=== PATIENT | female | born 1980 | race American Indian/Alaskan Native ===

== ENCOUNTER 2016-07-13 14:16 | Emergency (ER) | payer MEDICAID, OTHER ==
[2016-07-13 14:38] VITALS: BP 125/103
--- NOTE | 2016-07-13 16:05 | Emergency Department Report ---
ED ENT HPI - General Chief complaint: Upper Respiratory Infection Stated complaint: SINUS Time Seen by Provider: 07/13/16 15:51 Source: patient, RN notes reviewed, old records reviewed Mode of arrival: Ambulatory Limitations: No Limitations - History of Present Illness Initial comments: PT c/o sinus congestion since December of last year. PT states she was seen in this ED and the RX medication she was given did "nothing" PT holding bottle of Flonase and states it does not help. PT asking for refill or another nasal spray. PT has not followed up with PCP. PT has never had allergy testing. MD complaint: other (nasal congestion) Onset/Timin -: Gradual, month(s) Location: other (ears, nose, sinus ) Quality: other (itchy ) Associated Symptoms: discharge from ear (feels like water is in ears ), rhinorrhea. denies: fever, sore throat - Related Data Previous Rx's Medication Instructions Recorded Last Taken Type Azithromycin [Zithromax] 250 mg PO DAILY #6 tablet 07/13/16 Unknown Rx Cetirizine HCl/Pseudoephedrine 1 each PO BID PRN #14 tab.er.12h 07/13/16 Unknown Rx [Cetirizine-Pse ER 5-120 mg Tab] methylPREDNISolone [Medrol] 4 mg PO DAILY #1 tab.ds.pk 07/13/16 Unknown Rx Allergies Allergy/AdvReac Type Severity Reaction Status Date / Time No Known Allergies Allergy Unverified 08/13/15 07:37 ED Dental HPI - General Chief complaint: Upper Respiratory Infection Stated complaint: SINUS Time Seen by Provider: 07/13/16 15:51 Source: patient Mode of arrival: Ambulatory Limitations: No Limitations - Related Data Previous Rx's Medication Instructions Recorded Last Taken Type Azithromycin [Zithromax] 250 mg PO DAILY #6 tablet 07/13/16 Unknown Rx Cetirizine HCl/Pseudoephedrine 1 each PO BID PRN #14 tab.er.12h 07/13/16 Unknown Rx [Cetirizine-Pse ER 5-120 mg Tab] methylPREDNISolone [Medrol] 4 mg PO DAILY #1 tab.ds.pk 07/13/16 Unknown Rx Allergies Allergy/AdvReac Type Severity Reaction Status Date / Time No Known Allergies Allergy Unverified 08/13/15 07:37 ED Review of Systems ROS: Stated complaint: SINUS Other details as noted in HPI Comment: All other systems reviewed and negative Constitutional: denies: fever ENT: as per HPI, congestion, other (nasal drainage, sneezing, ears itch ). denies: ear pain, throat pain ED Past Medical Hx - Past Medical History Previous Medical History?: No - Surgical History Additional Surgical History: pelvic repair - Social History Smoking Status: Current Every Day Smoker Substance Use Type: None - Medications Home Medications: Home Medications Medication Instructions Recorded Confirmed Last Taken Type Azithromycin [Zithromax] 250 mg PO DAILY #6 tablet 07/13/16 Unknown Rx Cetirizine HCl/Pseudoephedrine 1 each PO BID PRN #14 tab.er.12h 07/13/16 Unknown Rx [Cetirizine-Pse ER 5-120 mg Tab] methylPREDNISolone [Medrol] 4 mg PO DAILY #1 tab.ds.pk 07/13/16 Unknown Rx ED Physical Exam - General Limitations: No Limitations General appearance: alert, in no apparent distress - Head Head exam: Present: atraumatic, normocephalic, normal inspection - Eye Eye exam: Present: normal appearance. Absent: scleral icterus, conjunctival injection - ENT ENT exam: Present: normal orophraynx, mucous membranes moist, TM's normal bilaterally, other (dry skin to R tragus, nose - nasal drainage noted, erna turbinates boggy and erythematous ) - Neck Neck exam: Present: normal inspection. Absent: lymphadenopathy - Respiratory Respiratory exam: Present: normal lung sounds bilaterally. Absent: respiratory distress - Cardiovascular Cardiovascular Exam: Present: regular rate, normal rhythm, normal heart sounds - Extremities Exam Extremities exam: Present: normal inspection, full ROM - Back Exam Back exam: Present: normal inspection, full ROM - Neurological Exam Neurological exam: Present: alert, oriented X3 - Psychiatric Psychiatric exam: Present: normal affect, normal mood - Skin Skin exam: Present: warm, dry, intact ED Course Vital Signs 07/13/16 14:31 Temperature 98.4 F Pulse Rate 85 Respiratory 20 Rate Blood Pressure 125/103 O2 Sat by Pulse 100 Oximetry - Reevaluation(s) Reevaluation #1: 07/13/16 16:13 Due to length of symptoms, I feel like this pt's symptoms are more related to allergic rhinitis, pt is insistent that she does not have allergies and she has never had allergies and she has a sinus infection. PT aware if symptoms do not improve, she may need allergy testing. - Pulse Oximetry Interpretation Digit-Finger Initial Pulse Oximetry Readin Actions Taken: none ED Medical Decision Making - Differential Diagnosis sinusitis, allergic rhinitis Critical care attestation.: If time is entered above; I have spent that time in minutes in the direct care of this critically ill patient, excluding procedure time. ED Disposition Clinical Impression: Sinus congestion Allergic rhinitis Qualifiers: Allergic rhinitis seasonality: unspecified seasonality Allergic rhinitis trigger: unspecified Qualified Code(s): J30.9 - Allergic rhinitis, unspecified Disposition: DISCHARGED TO HOME OR SELFCARE Is pt being admited?: No Does the pt Need Aspirin: No Condition: Stable Instructions: Allergic Rhinitis (ED), Sinusitis (ED) Additional Instructions: OTC normal saline nasal sprays at least 4 times daily have your BP rechecked at follow up Referrals: PRIMARY CARE, [Primary Care Provider] - 3-5 Days REJI AUSTIN MD [Staff Physician] - 3-5 Days Time of Disposition: 16:19
== END 2016-07-13 16:23 | disposition home or self-care (01) ==
LOC: ED 14:16
DX: J34.89 Other specified disorders of nose and nasal sinuses (principal); J30.9 Allergic rhinitis, unspecified; H92.10 Otorrhea, unspecified ear; F17.200 Nicotine dependence, unspecified, uncomplicated
CPT/HCPCS: 99282

== ENCOUNTER 2016-12-17 09:10 | Emergency (ER) | payer MEDICAID ==
[2016-12-17 09:28] VITALS: BP 107/63
--- NOTE | 2016-12-17 12:45 | Emergency Department Report ---
- General Chief Complaint: Upper Respiratory Infection Stated Complaint: POSS BROKEN L FINGER/SINUS INFECTION Time Seen by Provider: 12/17/16 12:28 Source: patient Mode of arrival: Ambulatory Limitations: No Limitations - History of Present Illness Initial Comments: 36-year-old female presents with complaint of left distal index finger inflammation/pain near her nailbed and complaint of one week of sinus congestion and sneezing and mild anterior sinus headache. Patient denies fevers or chills shortness of breath and coughing does state she has been sneezing. Patient has visible swelling near nailbed left distal fingertip. MD Complaint: nasal congestion Onset/Timin -: week(s) Severity: mild Severity scale (0 -10): 5 Quality: aching Consistency: constant Improves With: nothing Worsens With: nothing Associated Symptoms: denies other symptoms - Related Data Previous Rx's Medication Instructions Recorded Last Taken Type Azithromycin [Zithromax] 250 mg PO DAILY #6 tablet 07/13/16 Unknown Rx Cetirizine HCl/Pseudoephedrine 1 each PO BID PRN #14 tab.er.12h 07/13/16 Unknown Rx [Cetirizine-Pse ER 5-120 mg Tab] methylPREDNISolone [Medrol] 4 mg PO DAILY #1 tab.ds.pk 07/13/16 Unknown Rx Acetaminophen/Codeine [Tylenol 1 tab PO Q6H PRN #5 tab 12/17/16 Unknown Rx /Codeine # 3 tab] Amoxicillin/K Clav Tab [Augmentin 1 tab PO Q12HR #20 tab 12/17/16 Unknown Rx 875 mg] Azelastine HCl 137 mcg NS QDAY PRN #1 bottle 12/17/16 Unknown Rx Fluticasone [Flonase] 1 spray NS QDAY PRN #1 bottle 12/17/16 Unknown Rx Ibuprofen [Motrin] 600 mg PO Q8H PRN #25 tablet 12/17/16 Unknown Rx Loratadine [Claritin] 10 mg PO DAILY #30 tablet 12/17/16 Unknown Rx Allergies Allergy/AdvReac Type Severity Reaction Status Date / Time No Known Allergies Allergy Unverified 08/13/15 07:37 ED Review of Systems ROS: Stated complaint: POSS BROKEN L FINGER/SINUS INFECTION Other details as noted in HPI Constitutional: denies: chills, fever Eyes: denies: eye pain, eye discharge, vision change ENT: denies: ear pain, throat pain Respiratory: denies: cough, shortness of breath, wheezing Cardiovascular: denies: chest pain, palpitations Endocrine: no symptoms reported Gastrointestinal: denies: abdominal pain, nausea, diarrhea Genitourinary: denies: urgency, dysuria, discharge Musculoskeletal: denies: back pain, joint swelling, arthralgia Skin: denies: rash, lesions Neurological: denies: headache, weakness, paresthesias Psychiatric: denies: anxiety, depression Hematological/Lymphatic: denies: easy bleeding, easy bruising ED Past Medical Hx - Past Medical History Previous Medical History?: No - Surgical History Past Surgical History?: Yes Additional Surgical History: pelvic repair - Social History Smoking Status: Never Smoker Substance Use Type: None - Medications Home Medications: Home Medications Medication Instructions Recorded Confirmed Last Taken Type Azithromycin [Zithromax] 250 mg PO DAILY #6 tablet 07/13/16 Unknown Rx Cetirizine HCl/Pseudoephedrine 1 each PO BID PRN #14 tab.er.12h 07/13/16 Unknown Rx [Cetirizine-Pse ER 5-120 mg Tab] methylPREDNISolone [Medrol] 4 mg PO DAILY #1 tab.ds.pk 07/13/16 Unknown Rx Acetaminophen/Codeine [Tylenol 1 tab PO Q6H PRN #5 tab 12/17/16 Unknown Rx /Codeine # 3 tab] Amoxicillin/K Clav Tab [Augmentin 1 tab PO Q12HR #20 tab 12/17/16 Unknown Rx 875 mg] Azelastine HCl 137 mcg NS QDAY PRN #1 bottle 12/17/16 Unknown Rx Fluticasone [Flonase] 1 spray NS QDAY PRN #1 bottle 12/17/16 Unknown Rx Ibuprofen [Motrin] 600 mg PO Q8H PRN #25 tablet 12/17/16 Unknown Rx Loratadine [Claritin] 10 mg PO DAILY #30 tablet 12/17/16 Unknown Rx ED Physical Exam - General Limitations: No Limitations General appearance: alert, in no apparent distress - Head Head exam: Present: atraumatic, normocephalic - Eye Eye exam: Present: normal appearance, PERRL, EOMI - ENT ENT exam: Present: mucous membranes moist - Neck Neck exam: Present: normal inspection - Respiratory Respiratory exam: Present: normal lung sounds bilaterally. Absent: respiratory distress - Cardiovascular Cardiovascular Exam: Present: regular rate, normal rhythm. Absent: systolic murmur, diastolic murmur, rubs, gallop - GI/Abdominal GI/Abdominal exam: Present: soft, normal bowel sounds - Extremities Exam Extremities exam: Present: normal inspection - Expanded Upper Extremity Exam Left Elbow exam: Present: normal inspection, full ROM Forearm Wrist exam: Present: normal inspection, full ROM Hand Wrist exam: Present: full ROM, tenderness (tenerness left distal fingertip) Hand L/R Back: 1 - swelling here Neuro motor exam: Present: wrist extension intact, thumb opposition intact, thumb IP flexion intact, thumb adduction intact, fingers 2-5 abduction intact, other - Back Exam Back exam: Present: normal inspection - Neurological Exam Neurological exam: Present: alert, oriented X3, CN II-XII intact, normal gait - Psychiatric Psychiatric exam: Present: normal affect, normal mood - Skin Skin exam: Present: warm, dry, intact, normal color. Absent: rash ED Course Vital Signs 12/17/16 09:23 Temperature 98.1 F Pulse Rate 81 Respiratory 18 Rate Blood Pressure 107/63 O2 Sat by Pulse 100 Oximetry - I & D Left Distal Finger Type of Procedure: Simple Site: left distal index finger paronchyia Blade Size: 11 I & D Procedure: betadine prep, sterile dressing applied, gauze wick placed Progress: minimal bleeding, tolerated well, tiny amount of purulent drainage. no clinical fingertip felon on exam ED Medical Decision Making - Medical Decision Making a/p: sinusitis, left index finger 1- motrin prn, flonase, azelastine PRN 2- Augmentin 10 days course 3- tiny amount of drainage from paronchyia, I advised pt to return to the ED if paronchia worsens, for any fevers or chills. ROM distal finger mcp, pip, dip intact on exam. distal cap refill intact Critical care attestation.: If time is entered above; I have spent that time in minutes in the direct care of this critically ill patient, excluding procedure time. ED Disposition Clinical Impression: Paronychia Sinusitis Qualifiers: Sinusitis location: frontal Chronicity: acute Recurrence: non-recurrent Qualified Code(s): J01.10 - Acute frontal sinusitis, unspecified Disposition: DC-01 TO HOME OR SELFCARE Is pt being admited?: No Does the pt Need Aspirin: No Condition: Stable Instructions: Paronychia (ED), Sinusitis (ED) Prescriptions: Acetaminophen/Codeine [Tylenol /Codeine # 3 tab] 1 tab PO Q6H PRN #5 tab PRN Reason: Pain Amoxicillin/K Clav Tab [Augmentin 875 mg] 1 tab PO Q12HR #20 tab Azelastine HCl 137 mcg NS QDAY PRN #1 bottle PRN Reason: Congestion Fluticasone [Flonase] 1 spray NS QDAY PRN #1 bottle PRN Reason: Congestion Ibuprofen [Motrin] 600 mg PO Q8H PRN #25 tablet PRN Reason: Pain Loratadine [Claritin] 10 mg PO DAILY #30 tablet Referrals: [facility] [Provider Group] - 3-5 Days [facility] [Provider Group] - 3-5 Days Forms: Work/School Release Form(ED) Time of Disposition: 15:40
[2016-12-17] MEDS ORDERED: AUGMENTIN 875 MG PO ONE (12:56)
[2016-12-17] MEDS ORDERED: MOTRIN PO ONE (12:57)
--- NOTE | 2016-12-17 14:25 | XRay Report ---
Left index finger: Swelling. Routine views demonstrate mild focal swelling over the dorsal aspect of the distal joint space. Mild articular spurring is noted. The joint spaces preserved. The bones are well-mineralized. No erosive change noted. No foreign body. No ulcer. Fake nail. Impression: Focal nonspecific swelling.
== END 2016-12-17 15:54 | disposition home or self-care (01) ==
LOC: ED 09:10
DX: L03.012 Cellulitis of left finger (principal); J01.10 Acute frontal sinusitis, unspecified

== ENCOUNTER 2018-05-12 11:39 | Emergency (ER) | payer MEDICAID, OTHER ==
[2018-05-12 11:49] VITALS: BP 134/83
--- NOTE | 2018-05-12 13:08 | Emergency Department Report ---
ED General Adult HPI - General Chief complaint: Upper Respiratory Infection Stated complaint: FLU LIKE SYMPTOMS Time Seen by Provider: 05/12/18 12:47 Source: patient Mode of arrival: Ambulatory Limitations: No Limitations - History of Present Illness Initial comments: Patient presents to emergency department with a chief complaint of congestion for the last 4 weeks. Patient states she's been told multiple times that she has sinus infections but she is not diabetic and does not smoke. Patient denies chest pain, shortness breath, or headache. -: Gradual Radiation: non-radiation Severity scale (0 -10): 0 Consistency: constant Improves with: none Worsens with: none Associated Symptoms: denies other symptoms Treatments Prior to Arrival: none - Related Data Previous Rx's Medication Instructions Recorded Last Taken Type Azithromycin [Zithromax] 250 mg PO DAILY #6 tablet 07/13/16 Unknown Rx Cetirizine HCl/Pseudoephedrine 1 each PO BID PRN #14 tab.er.12h 07/13/16 Unknown Rx [Cetirizine-Pse ER 5-120 mg Tab] methylPREDNISolone [Medrol] 4 mg PO DAILY #1 tab.ds.pk 07/13/16 Unknown Rx Acetaminophen/Codeine [Tylenol 1 tab PO Q6H PRN #5 tab 12/17/16 Unknown Rx /Codeine # 3 tab] Amoxicillin/K Clav Tab [Augmentin 1 tab PO Q12HR #20 tab 12/17/16 Unknown Rx 875 mg] Azelastine HCl 137 mcg NS QDAY PRN #1 bottle 12/17/16 Unknown Rx Fluticasone [Flonase] 1 spray NS QDAY PRN #1 bottle 12/17/16 Unknown Rx Ibuprofen [Motrin] 600 mg PO Q8H PRN #25 tablet 12/17/16 Unknown Rx Loratadine [Claritin] 10 mg PO DAILY #30 tablet 12/17/16 Unknown Rx Cetirizine HCl/Pseudoephedrine 1 each PO DAILY #30 tab.er.12h 05/12/18 Unknown Rx [Zyrtec-D Tablet] Fluticasone [Flonase] 2 spray NS QDAY #1 bottle 05/12/18 Unknown Rx Prednisone [predniSONE 10 mg 10 mg PO .TAPER #1 tab.ds.pk 05/12/18 Unknown Rx (6-Day Pack, 21 Tabs)] Allergies Allergy/AdvReac Type Severity Reaction Status Date / Time No Known Allergies Allergy Verified 05/12/18 11:49 ED Review of Systems ROS: Stated complaint: FLU LIKE SYMPTOMS Other details as noted in HPI Comment: All other systems reviewed and negative Constitutional: denies: chills, fever Eyes: denies: eye pain, eye discharge, vision change ENT: denies: ear pain, throat pain Respiratory: denies: cough, shortness of breath, wheezing Cardiovascular: denies: chest pain, palpitations Endocrine: no symptoms reported Gastrointestinal: denies: abdominal pain, nausea, diarrhea Genitourinary: denies: urgency, dysuria, discharge Musculoskeletal: denies: back pain, joint swelling, arthralgia Skin: denies: rash, lesions Neurological: denies: headache, weakness, paresthesias Psychiatric: denies: anxiety, depression Hematological/Lymphatic: denies: easy bleeding, easy bruising ED Past Medical Hx - Past Medical History Previous Medical History?: No - Surgical History Past Surgical History?: Yes Additional Surgical History: pelvic repair - Social History Smoking Status: Never Smoker Substance Use Type: None - Medications Home Medications: Home Medications Medication Instructions Recorded Confirmed Last Taken Type Azithromycin [Zithromax] 250 mg PO DAILY #6 tablet 07/13/16 Unknown Rx Cetirizine HCl/Pseudoephedrine 1 each PO BID PRN #14 tab.er.12h 07/13/16 Unknown Rx [Cetirizine-Pse ER 5-120 mg Tab] methylPREDNISolone [Medrol] 4 mg PO DAILY #1 tab.ds.pk 07/13/16 Unknown Rx Acetaminophen/Codeine [Tylenol 1 tab PO Q6H PRN #5 tab 12/17/16 Unknown Rx /Codeine # 3 tab] Amoxicillin/K Clav Tab [Augmentin 1 tab PO Q12HR #20 tab 12/17/16 Unknown Rx 875 mg] Azelastine HCl 137 mcg NS QDAY PRN #1 bottle 12/17/16 Unknown Rx Fluticasone [Flonase] 1 spray NS QDAY PRN #1 bottle 12/17/16 Unknown Rx Ibuprofen [Motrin] 600 mg PO Q8H PRN #25 tablet 12/17/16 Unknown Rx Loratadine [Claritin] 10 mg PO DAILY #30 tablet 12/17/16 Unknown Rx Cetirizine HCl/Pseudoephedrine 1 each PO DAILY #30 tab.er.12h 05/12/18 Unknown Rx [Zyrtec-D Tablet] Fluticasone [Flonase] 2 spray NS QDAY #1 bottle 05/12/18 Unknown Rx Prednisone [predniSONE 10 mg 10 mg PO .TAPER #1 tab.ds.pk 05/12/18 Unknown Rx (6-Day Pack, 21 Tabs)] ED Physical Exam - General Limitations: No Limitations General appearance: alert, in no apparent distress - Head Head exam: Present: atraumatic, normocephalic - Eye Eye exam: Present: normal appearance, PERRL, EOMI - ENT ENT exam: Present: mucous membranes moist, TM's normal bilaterally, other (transillumination of the sinuses are normal; there is no tenderness palpation over frontal or mastoid sinuses; the mucosa of the naris are pale and thin) - Neck Neck exam: Present: normal inspection - Respiratory Respiratory exam: Present: normal lung sounds bilaterally. Absent: respiratory distress - Cardiovascular Cardiovascular Exam: Present: regular rate, normal rhythm. Absent: systolic murmur, diastolic murmur, rubs, gallop - Extremities Exam Extremities exam: Present: normal inspection - Back Exam Back exam: Present: normal inspection - Neurological Exam Neurological exam: Present: alert, oriented X3 - Psychiatric Psychiatric exam: Present: normal affect, normal mood - Skin Skin exam: Present: warm, dry, intact, normal color, other (patient has findings consistent with atopic dermatitis to the ears bilaterally) ED Course Vital Signs 05/12/18 11:44 Temperature 97.6 F Pulse Rate 72 Respiratory 18 Rate Blood Pressure 134/83 O2 Sat by Pulse 100 Oximetry Critical care attestation.: If time is entered above; I have spent that time in minutes in the direct care of this critically ill patient, excluding procedure time. ED Disposition Clinical Impression: Allergic rhinitis, Atopic dermatitis Disposition: DC-01 TO HOME OR SELFCARE Is pt being admited?: No Does the pt Need Aspirin: No Condition: Stable Instructions: Allergic Rhinitis (ED), Eczema (ED) Additional Instructions: return if worse Prescriptions: Cetirizine HCl/Pseudoephedrine [Zyrtec-D Tablet] 1 each PO DAILY #30 tab.er.12h Fluticasone [Flonase] 2 spray NS QDAY #1 bottle Prednisone [predniSONE 10 mg (6-Day Pack, 21 Tabs)] 10 mg PO .TAPER #1 tab.ds.pk Referrals: [facility] [Provider Group] - 3-5 Days [facility] [Provider Group] - 3-5 Days Time of Disposition: 13:16
== END 2018-05-12 13:22 | disposition home or self-care (01) ==
LOC: ED 11:39
DX: J30.9 Allergic rhinitis, unspecified (principal); L20.9 Atopic dermatitis, unspecified
CPT/HCPCS: 99282

== ENCOUNTER 2020-06-24 13:35 | Emergency (ER) | payer MEDICAID ==
[2020-06-24 13:45] VITALS: BP 145/66
--- NOTE | 2020-06-24 14:50 | Emergency Department Report ---
- General Chief Complaint: Upper Respiratory Infection Stated Complaint: SINUS/BILATERAL EAR PAIN/THROAT SWOLLEN Time Seen by Provider: 06/24/20 13:50 Source: patient Mode of arrival: Ambulatory Limitations: No Limitations - History of Present Illness Initial Comments: This is a 39-year-old female nontoxic, well nourished in appearance, no acute signs of distress presents to the ED with c/o of sore throat, sinus pain, rhinorrhea, nasal congestion x several days. Patient denies any cough or sick contacts. Patient denies any recent travels, long car, recent hospital stays. Patient denies any calf pain or calf tenderness. Patient denies any chest pain, short of breath, fever, chills, nausea, vomiting, hemoptysis, numbness, tingling, headache or stiff neck. Patient denies any allergies or significant past medical history. MD Complaint: sore throat, rhinorrhea, nasal congestion, sinus pain -: days(s) Severity: mild Severity scale (0 -10): 3 Quality: aching Consistency: constant Improves With: nothing Worsens With: nothing Associated Symptoms: rhinorrhea, nasal congestion, sore throat. denies: fever, chills, myalgias, diaphoresis, headache, stiff neck, cough, chest pain, shortness of breath, abdominal pain, nausea, vomiting, diarrhea, dysuria, rash, confusion, right sweats, weight loss, epistaxis, hoarseness, ear pain Treatments Prior to Arrival: none - Related Data Previous Rx's Medication Instructions Recorded Last Taken Type Azithromycin [Zithromax] 250 mg PO DAILY #6 tablet 07/13/16 Unknown Rx Cetirizine HCl/Pseudoephedrine 1 each PO BID PRN #14 tab.er.12h 07/13/16 Unknown Rx [Cetirizine-Pse ER 5-120 mg Tab] methylPREDNISolone [Medrol] 4 mg PO DAILY #1 tab.ds.pk 07/13/16 Unknown Rx Acetaminophen/Codeine [Tylenol 1 tab PO Q6H PRN #5 tab 12/17/16 Unknown Rx /Codeine # 3 tab] Amoxicillin/K Clav Tab [Augmentin 1 tab PO Q12HR #20 tab 12/17/16 Unknown Rx 875 mg] Azelastine HCl 137 mcg NS QDAY PRN #1 bottle 12/17/16 Unknown Rx Fluticasone [Flonase] 1 spray NS QDAY PRN #1 bottle 12/17/16 Unknown Rx Ibuprofen [Motrin] 600 mg PO Q8H PRN #25 tablet 12/17/16 Unknown Rx Loratadine (Nf) [Claritin] 10 mg PO DAILY #30 tablet 12/17/16 Unknown Rx Cetirizine HCl/Pseudoephedrine 1 each PO DAILY #30 tab.er.12h 05/12/18 Unknown Rx [Zyrtec-D Tablet] Fluticasone [Flonase] 2 spray NS QDAY #1 bottle 05/12/18 Unknown Rx Prednisone [predniSONE 10 mg 10 mg PO .TAPER #1 tab.ds.pk 05/12/18 Unknown Rx (6-Day Pack, 21 Tabs)] Amoxicillin 500 mg PO TID 10 Days #30 capsule 07/25/18 Unknown Rx Ibuprofen 800 mg PO TID PRN #30 tablet 07/25/18 Unknown Rx Amoxicillin/K Clav Tab [Augmentin 1 tab PO Q12HR #20 tab 06/24/20 Unknown Rx 875 mg] Allergies Allergy/AdvReac Type Severity Reaction Status Date / Time No Known Allergies Allergy Verified 05/12/18 11:49 ED Review of Systems ROS: Stated complaint: SINUS/BILATERAL EAR PAIN/THROAT SWOLLEN Other details as noted in HPI Comment: All other systems reviewed and negative Constitutional: denies: chills, fever Eyes: denies: eye pain, eye discharge, vision change ENT: throat pain, congestion. denies: ear pain Respiratory: denies: cough, shortness of breath, wheezing Cardiovascular: denies: chest pain, palpitations Endocrine: no symptoms reported Gastrointestinal: denies: abdominal pain, nausea, diarrhea Genitourinary: denies: urgency, dysuria, discharge Musculoskeletal: denies: back pain, joint swelling, arthralgia Skin: denies: rash, lesions Neurological: denies: headache, weakness, paresthesias Psychiatric: denies: anxiety, depression Hematological/Lymphatic: denies: easy bleeding, easy bruising ED Past Medical Hx - Past Medical History Previous Medical History?: No - Surgical History Additional Surgical History: pelvic repair - Social History Smoking Status: Never Smoker Substance Use Type: None - Medications Home Medications: Home Medications Medication Instructions Recorded Confirmed Last Taken Type Azithromycin [Zithromax] 250 mg PO DAILY #6 tablet 07/13/16 Unknown Rx Cetirizine HCl/Pseudoephedrine 1 each PO BID PRN #14 tab.er.12h 07/13/16 Unknown Rx [Cetirizine-Pse ER 5-120 mg Tab] methylPREDNISolone [Medrol] 4 mg PO DAILY #1 tab.ds.pk 07/13/16 Unknown Rx Acetaminophen/Codeine [Tylenol 1 tab PO Q6H PRN #5 tab 12/17/16 Unknown Rx /Codeine # 3 tab] Amoxicillin/K Clav Tab [Augmentin 1 tab PO Q12HR #20 tab 12/17/16 Unknown Rx 875 mg] Azelastine HCl 137 mcg NS QDAY PRN #1 bottle 12/17/16 Unknown Rx Fluticasone [Flonase] 1 spray NS QDAY PRN #1 bottle 12/17/16 Unknown Rx Ibuprofen [Motrin] 600 mg PO Q8H PRN #25 tablet 12/17/16 Unknown Rx Loratadine (Nf) [Claritin] 10 mg PO DAILY #30 tablet 12/17/16 Unknown Rx Cetirizine HCl/Pseudoephedrine 1 each PO DAILY #30 tab.er.12h 05/12/18 Unknown Rx [Zyrtec-D Tablet] Fluticasone [Flonase] 2 spray NS QDAY #1 bottle 05/12/18 Unknown Rx Prednisone [predniSONE 10 mg 10 mg PO .TAPER #1 tab.ds.pk 05/12/18 Unknown Rx (6-Day Pack, 21 Tabs)] Amoxicillin 500 mg PO TID 10 Days #30 capsule 07/25/18 Unknown Rx Ibuprofen 800 mg PO TID PRN #30 tablet 07/25/18 Unknown Rx Amoxicillin/K Clav Tab [Augmentin 1 tab PO Q12HR #20 tab 06/24/20 Unknown Rx 875 mg] ED Physical Exam - General Limitations: No Limitations General appearance: alert, in no apparent distress - Head Head exam: Present: atraumatic, normocephalic - Eye Eye exam: Present: normal appearance - Expanded ENT Exam Expanded Ear exam: Present: normal external inspection Mouth exam: Present: normal external inspection, tongue normal. Absent: drooling, trismus, muffled voice Teeth exam: Present: normal inspection Throat exam: Positive: tonsillar erythema, tonsillomegaly (2+), tonsillar exudate, other (uvula midline). Negative: R peritonsillar mass, L peritonsillar mass - Neck Neck exam: Present: normal inspection, full ROM, lymphadenopathy (tonsillar). Absent: tenderness, meningismus - Respiratory Respiratory exam: Absent: respiratory distress - Cardiovascular Cardiovascular Exam: Present: regular rate - Extremities Exam Extremities exam: Present: full ROM - Back Exam Back exam: Present: full ROM - Neurological Exam Neurological exam: Present: alert, oriented X3, normal gait - Psychiatric Psychiatric exam: Present: normal affect, normal mood - Skin Skin exam: Present: warm, dry, intact, normal color. Absent: rash - Other Other exam information: positive sinus tenderness ED Course Vital Signs 06/24/20 13:40 Temperature 98 F Pulse Rate 85 Respiratory 20 Rate Blood Pressure 145/66 O2 Sat by Pulse 100 Oximetry - Reevaluation(s) Reevaluation #1: 06/24/20 14:52 Patient is speaking in full sentences with no signs of distress noted. ED Medical Decision Making - Medical Decision Making This is a 39-year-old female that presents with sinusitis and tonsillitis. Patient is stable and was examined by me. C patient will be treated with Augmentin. Patient is nonfebrile and normal heart rate. Patient was instructed Follow-up with a primary care doctor in 3-5 days or if symptoms worsen and continue return to emergency room as soon as possible. At time time of discharge, the patient does not seem toxic or ill in appearance. No acute signs of distress noted. Patient agrees to discharge treatment plan of care. No further questions noted by the patient.nt. Critical care attestation.: If time is entered above; I have spent that time in minutes in the direct care of this critically ill patient, excluding procedure time. ED Disposition Clinical Impression: Tonsillitis with exudate Sinusitis Qualifiers: Sinusitis location: maxillary Chronicity: acute Recurrence: recurrent Qualified Code(s): J01.01 - Acute recurrent maxillary sinusitis Disposition: TO HOME OR SELFCARE Is pt being admited?: No Does the pt Need Aspirin: No Condition: Stable Instructions: Sinusitis, Adult, [id number] Additional Instructions: Follow-up with a primary care doctor in 3-5 days or if symptoms worsen and continue return to emergency room as soon as possible. Prescriptions: Amoxicillin/K Clav Tab [Augmentin 875 mg] 1 tab PO Q12HR #20 tab Referrals: PRIMARY CAREMD [Referring] - 3-5 Days MARV MORENO MD [Staff Physician] - 3-5 Days Time of Disposition: 14:53
== END 2020-06-24 15:44 | disposition home or self-care (01) ==
LOC: ED 13:35
DX: J32.9 Chronic sinusitis, unspecified (principal); J03.90 Acute tonsillitis, unspecified; Z98.890 Other specified postprocedural states; Z79.1 Long term (current) use of non-steroidal anti-inflammatories (NSAID); Z79.2 Long term (current) use of antibiotics; Z79.899 Other long term (current) drug therapy
CPT/HCPCS: 99282

== ENCOUNTER 2020-07-05 16:24 | Emergency (ER) | payer MEDICAID ==
[2020-07-05 16:46] VITALS: BP 125/73
--- NOTE | 2020-07-05 17:09 | Emergency Department Report ---
Minor Respiratory - HPI Chief Complaint: Upper Respiratory Infection Stated Complaint: SORE THROAT/COUGH Time Seen by Provider: 07/05/20 16:46 Duration: 3 Days Pain Location: Throat, Chest Severity: mild Minor Respiratory: Yes Able to Tolerate Fluids, Yes Cough, No Rhinorrhea, No Sore Throat, No Ear Pain, No Sick Contacts, No Hemoptysis, No Chest Pain, No Shortness of Breath, No Fever Other History: 39 yo comes to ER with cough. She is concerned for covid. Had neg test yesterday. No cp. No sob. No fever or chills. Ambulatory and non ill ap pearing on exam in ER. ED Review of Systems ROS: Stated complaint: SORE THROAT/COUGH Other details as noted in HPI Comment: All other systems reviewed and negative ED Past Medical Hx - Past Medical History Previous Medical History?: No - Surgical History Past Surgical History?: Yes Additional Surgical History: pelvic repair - Family History Family history: no significant - Social History Smoking Status: Never Smoker Substance Use Type: None - Medications Home Medications: Home Medications Medication Instructions Recorded Confirmed Last Taken Type Azithromycin [Zithromax] 250 mg PO DAILY #6 tablet 07/13/16 Unknown Rx Cetirizine HCl/Pseudoephedrine 1 each PO BID PRN #14 tab.er.12h 07/13/16 Unknown Rx [Cetirizine-Pse ER 5-120 mg Tab] methylPREDNISolone [Medrol] 4 mg PO DAILY #1 tab.ds.pk 07/13/16 Unknown Rx Acetaminophen/Codeine [Tylenol 1 tab PO Q6H PRN #5 tab 12/17/16 Unknown Rx /Codeine # 3 tab] Amoxicillin/K Clav Tab [Augmentin 1 tab PO Q12HR #20 tab 12/17/16 Unknown Rx 875 mg] Azelastine HCl 137 mcg NS QDAY PRN #1 bottle 12/17/16 Unknown Rx Fluticasone [Flonase] 1 spray NS QDAY PRN #1 bottle 12/17/16 Unknown Rx Ibuprofen [Motrin] 600 mg PO Q8H PRN #25 tablet 12/17/16 Unknown Rx Loratadine (Nf) [Claritin] 10 mg PO DAILY #30 tablet 12/17/16 Unknown Rx Cetirizine HCl/Pseudoephedrine 1 each PO DAILY #30 tab.er.12h 05/12/18 Unknown Rx [Zyrtec-D Tablet] Fluticasone [Flonase] 2 spray NS QDAY #1 bottle 05/12/18 Unknown Rx Prednisone [predniSONE 10 mg 10 mg PO .TAPER #1 tab.ds.pk 05/12/18 Unknown Rx (6-Day Pack, 21 Tabs)] Amoxicillin 500 mg PO TID 10 Days #30 capsule 07/25/18 Unknown Rx Ibuprofen 800 mg PO TID PRN #30 tablet 07/25/18 Unknown Rx Amoxicillin/K Clav Tab [Augmentin 1 tab PO Q12HR #20 tab 06/24/20 Unknown Rx 875 mg] Minor Respiratory Exam - Exam General: Vital signs noted. No distress. Alert and acting appropriately. HEENT: Yes Moist Mucous Membranes, No Pharyngeal Erythema, No Pharyngeal Exudates, No Rhinorrhea, No Conjuctival Injection, No Frontal Tenderness, No Maxillary Tenderness Ear: Neither TM Bulge, Neither TM Erythema, Neither EAC Pain, Neither EAC Discharge Neck: Yes Supple, No Adenopathy Lungs: Yes Good Air Exchange, No Wheezes, No Ronchi, No Stridor, No Cough, No Labored Respirations, No Retractions, No Use of Accessory Muscles, No Other Abnormal Lung Sounds Heart: Yes Regular, No Murmur Abdomen: Yes Normal Bowel Sounds, No Tenderness, No Peritoneal Signs Skin: No Rash, No Edema Neurologic: Alert and oriented, no deficits. Musculoskeletal: Unremarkable. ED Course Vital Signs 07/05/20 16:43 Temperature 98.1 F Pulse Rate 97 H Respiratory 20 Rate Blood Pressure 125/73 O2 Sat by Pulse 98 Oximetry ED Medical Decision Making - Radiology Data Radiology results: report reviewed, image reviewed nap - Medical Decision Making xray nap no consolidation or infiltrate suggestive of covid Vital Signs 07/05/20 16:43 Temperature 98.1 F Pulse Rate 97 H Respiratory 20 Rate Blood Pressure 125/73 O2 Sat by Pulse 98 Oximetry Pt very anxious about cherry covid- attempts to reassure her. Pt dc home with dc plan of care including follow up- she verbalizes understanding of plan of care. - Differential Diagnosis ro pna Critical care attestation.: If time is entered above; I have spent that time in minutes in the direct care of this critically ill patient, excluding procedure time. ED Disposition Clinical Impression: Cough Disposition: DC-01 TO HOME OR SELFCARE Is pt being admited?: No Does the pt Need Aspirin: No Condition: Stable Instructions: Cough, Adult Additional Instructions: FOLLOW UP WITH PCP REFERRAL BELOW REFER TO LIST OF CLINICS FOR ANOTHER COVID TEST OVER THE COUNTER SYMPTOM RELIEF Referrals: MARV MORENO MD [Staff Physician] - 3-5 Days Forms: Work/School Release Form(ED) Time of Disposition: 17:09
--- NOTE | 2020-07-05 17:13 | XRay Report ---
CHEST PA AND LATERAL VIEWS INDICATION: COUGH. COMPARISON: None FINDINGS: Support devices: None Heart: Normal Lungs/Pleura: No acute pulmonary or pleural findings. IMPRESSION: 1. No significant abnormality. Signer Name: Dallin Miranda MD Signed: 07/05/2020 5:09 PM Workstation Name: [id number]
== END 2020-07-05 17:22 | disposition home or self-care (01) ==
LOC: ED 16:24
DX: R05 Cough (principal); J02.9 Acute pharyngitis, unspecified; Z98.890 Other specified postprocedural states; Z79.1 Long term (current) use of non-steroidal anti-inflammatories (NSAID); Z79.2 Long term (current) use of antibiotics; Z79.899 Other long term (current) drug therapy
CPT/HCPCS: 71046

== ENCOUNTER 2020-09-19 18:59 | Emergency (ER) | payer MEDICAID | END 2020-09-19 22:00 | disposition left against medical advice (07) | LOC: ED 18:59 | DX: M25.541 Pain in joints of right hand (principal); Z53.21 Procedure and treatment not carried out due to patient leaving prior to being seen by health care provider ==

== ENCOUNTER 2021-01-12 09:17 | Emergency (ER) | payer MEDICAID ==
[2021-01-12 10:13] VITALS: BP 146/75
--- NOTE | 2021-01-12 13:03 | Emergency Department Report ---
ED Lower Extremity HPI - General Chief Complaint: Extremity Injury, Lower Stated Complaint: TOE PAIN Time Seen by Provider: 01/12/21 13:00 Source: patient Mode of arrival: Ambulatory Limitations: No Limitations - History of Present Illness Initial Comments: Patient is a 40-year-old female presents emergency room complaints of a left small toe injury that occurred 2 weeks ago. She states that she had it against the concrete 2 weeks ago. She denies any laceration or abrasion. She has been ambulatory without difficulty. She states that she has some mild pain and some swelling. She denies any numbness or weakness. She denies ever injuring in the past. No past medical history. No allergies to medications. - Related Data Previous Rx's Medication Instructions Recorded Last Taken Type Azithromycin [Zithromax] 250 mg PO DAILY #6 tablet 07/13/16 Unknown Rx Cetirizine HCl/Pseudoephedrine 1 each PO BID PRN #14 tab.er.12h 07/13/16 Unknown Rx [Cetirizine-Pse ER 5-120 mg Tab] methylPREDNISolone [Medrol] 4 mg PO DAILY #1 tab.ds.pk 07/13/16 Unknown Rx Acetaminophen/Codeine [Tylenol 1 tab PO Q6H PRN #5 tab 12/17/16 Unknown Rx /Codeine # 3 tab] Amoxicillin/K Clav Tab [Augmentin 1 tab PO Q12HR #20 tab 12/17/16 Unknown Rx 875 mg] Azelastine HCl 137 mcg NS QDAY PRN #1 bottle 12/17/16 Unknown Rx Fluticasone [Flonase] 1 spray NS QDAY PRN #1 bottle 12/17/16 Unknown Rx Ibuprofen [Motrin] 600 mg PO Q8H PRN #25 tablet 12/17/16 Unknown Rx Loratadine (Nf) [Claritin] 10 mg PO DAILY #30 tablet 12/17/16 Unknown Rx Cetirizine HCl/Pseudoephedrine 1 each PO DAILY #30 tab.er.12h 05/12/18 Unknown Rx [Zyrtec-D Tablet] Fluticasone [Flonase] 2 spray NS QDAY #1 bottle 05/12/18 Unknown Rx Prednisone [predniSONE 10 mg 10 mg PO .TAPER #1 tab.ds.pk 05/12/18 Unknown Rx (6-Day Pack, 21 Tabs)] Amoxicillin 500 mg PO TID 10 Days #30 capsule 07/25/18 Unknown Rx Ibuprofen 800 mg PO TID PRN #30 tablet 07/25/18 Unknown Rx Amoxicillin/K Clav Tab [Augmentin 1 tab PO Q12HR #20 tab 06/24/20 Unknown Rx 875 mg] Allergies Allergy/AdvReac Type Severity Reaction Status Date / Time No Known Allergies Allergy Verified 01/12/21 10:13 ED Review of Systems ROS: Stated complaint: TOE PAIN Other details as noted in HPI Comment: All other systems reviewed and negative ED Past Medical Hx - Surgical History Additional Surgical History: pelvic repair - Social History Smoking Status: Never Smoker Substance Use Type: None - Medications Home Medications: Home Medications Medication Instructions Recorded Confirmed Last Taken Type Azithromycin [Zithromax] 250 mg PO DAILY #6 tablet 07/13/16 Unknown Rx Cetirizine HCl/Pseudoephedrine 1 each PO BID PRN #14 tab.er.12h 07/13/16 Unknown Rx [Cetirizine-Pse ER 5-120 mg Tab] methylPREDNISolone [Medrol] 4 mg PO DAILY #1 tab.ds.pk 07/13/16 Unknown Rx Acetaminophen/Codeine [Tylenol 1 tab PO Q6H PRN #5 tab 12/17/16 Unknown Rx /Codeine # 3 tab] Amoxicillin/K Clav Tab [Augmentin 1 tab PO Q12HR #20 tab 12/17/16 Unknown Rx 875 mg] Azelastine HCl 137 mcg NS QDAY PRN #1 bottle 12/17/16 Unknown Rx Fluticasone [Flonase] 1 spray NS QDAY PRN #1 bottle 12/17/16 Unknown Rx Ibuprofen [Motrin] 600 mg PO Q8H PRN #25 tablet 12/17/16 Unknown Rx Loratadine (Nf) [Claritin] 10 mg PO DAILY #30 tablet 12/17/16 Unknown Rx Cetirizine HCl/Pseudoephedrine 1 each PO DAILY #30 tab.er.12h 05/12/18 Unknown Rx [Zyrtec-D Tablet] Fluticasone [Flonase] 2 spray NS QDAY #1 bottle 05/12/18 Unknown Rx Prednisone [predniSONE 10 mg 10 mg PO .TAPER #1 tab.ds.pk 05/12/18 Unknown Rx (6-Day Pack, 21 Tabs)] Amoxicillin 500 mg PO TID 10 Days #30 capsule 07/25/18 Unknown Rx Ibuprofen 800 mg PO TID PRN #30 tablet 07/25/18 Unknown Rx Amoxicillin/K Clav Tab [Augmentin 1 tab PO Q12HR #20 tab 06/24/20 Unknown Rx 875 mg] ED Physical Exam - General Limitations: No Limitations General appearance: alert, in no apparent distress - Head Head exam: Present: atraumatic, normocephalic - Eye Eye exam: Present: normal appearance - ENT ENT exam: Present: mucous membranes moist - Extremities Exam Extremities exam: Present: other (no ttp of the LLE, FROM of the LLE, mild edema to the left pinky toe, no erythema, no skin changes, no deformity, neurovascularly intact) - Neurological Exam Neurological exam: Present: alert, oriented X3 - Psychiatric Psychiatric exam: Present: normal affect, normal mood - Skin Skin exam: Present: warm, dry, intact ED Course Vital Signs 01/12/21 10:12 Temperature 97.4 F L Pulse Rate 87 Respiratory 18 Rate Blood Pressure 146/75 [Left] O2 Sat by Pulse 100 Oximetry ED Lower Extremity MDM - Medical Decision Making Patient is a 40-year-old female presents emergency room complaints of a left small toe injury that occurred 2 weeks ago. She states that she had it against the concrete 2 weeks ago. She denies any laceration or abrasion. She has been ambulatory without difficulty. She states that she has some mild pain and some swelling. She denies any numbness or weakness. She denies ever injuring in the past. No past medical history. No allergies to medications. Vitals are stable. On exam:no ttp of the LLE, FROM of the LLE, mild edema to the left pinky toe, no erythema, no skin changes, no deformity, neurovascularly intact. Patient is ambulating without any difficulty. Offered patient x-ray and she politely declined. Could be related to toe contusion versus toe sprain. She has no deformity and no clinical signs of dislocation. Advised patient May anupam tape the fourth toe to the fifth toe. Follow-up with orthopedic doctor. Return to emergency room for any new or worsening symptoms. May alternate Tylenol or ibuprofen as needed for any discomfort. Critical care attestation.: If time is entered above; I have spent that time in minutes in the direct care of this critically ill patient, excluding procedure time. ED Disposition Clinical Impression: Injury of left toe Qualifiers: Encounter type: initial encounter Qualified Code(s): S99.922A - Unspecified injury of left foot, initial encounter Disposition: HOME / SELF CARE / HOMELESS Is pt being admited?: No Does the pt Need Aspirin: No Condition: Stable Additional Instructions: May anupam tape the fourth toe to the fifth toe. Follow-up with orthopedic doctor. Return to emergency room for any new or worsening symptoms. May alternate Tylenol or ibuprofen as needed for any discomfort. Referrals: CHRISTY LEE MD [Staff Physician] - 2-3 Days [facility] [Provider Group] - 2-3 Days Time of Disposition: 13:02 Print Language: TELUGU
== END 2021-01-12 13:15 | disposition home or self-care (01) ==
LOC: ED 09:17
DX: S99.922A Unspecified injury of left foot, initial encounter (principal); Z79.899 Other long term (current) drug therapy; W22.8XXA Striking against or struck by other objects, initial encounter; Y93.89 Activity, other specified; Y92.89 Other specified places as the place of occurrence of the external cause; Y99.8 Other external cause status
CPT/HCPCS: 99281